=== PATIENT | male | born 1995 | race African-American/Black ===

== ENCOUNTER 2022-08-18 08:52 | Emergency (ER) | payer OTHER ==
--- NOTE | 2022-08-18 09:17 | ED Physician Documentation ---
PD HPI URI - Stated complaint Stated Complaint: COUGH/DIARRHEA - Chief complaint Chief Complaint: General - History obtained from History obtained from: Patient - History of Present Illness Timing - onset: How many weeks ago (07/17) Timing duration: Weeks (07/17) Timing details: Gradual onset, Still present, Waxing and waning (he states illness initially for 4-5 days and was improving some, but then worse cough and now productive with wheezing/dyspnea the past 2-3 days.) Associated symptoms: Nasal congestion, Productive cough, Dyspnea, NVD (initially with some diarrhea, improving.). No: Hemoptysis, Chest pain Contributing factors: Sick contact (he states his children at home had hand/foot/mouth viral URI about 2 weeks ago and then he got sick but no rash/sores of hands/mouth.) Similar symptoms before: Has not had sx before Recently seen: Clinic (went to clinic/walk in a week ago and rx tessalon for cough without improvement in cough.) Review of Systems Constitutional: reports: Myalgias, Fatigue Nose: reports: Congestion Throat: denies: Sore throat Respiratory: reports: Dyspnea (increasing recently), Cough, Wheezing (the past few days) GI: reports: Nausea, Diarrhea. denies: Abdominal Pain, Vomiting Skin: denies: Rash, Lesions Neurologic: reports: Generalized weakness. denies: Altered mental status, Headache PD PAST MEDICAL HISTORY - Past Medical History Cardiovascular: None Respiratory: Asthma (no ongoing asthma, but he states he has had inhalers use in the past with prior URIs. ) Endocrine/Autoimmune: None - Present Medications Home Medications: Ambulatory Orders Medication Instructions Recorded Confirmed Albuterol Sulf [Ventolin Hfa 2 - 3 puffs INH Q4HR PRN #1 each 08/18/22 Inhaler] Doxycycline Hyclate 100 mg PO BID 5 Days #10 cap 08/18/22 dexAMETHasone [Decadron] 4 mg PO DAILY #5 tablet 08/18/22 - Allergies Allergies/Adverse Reactions: Allergies Allergy/AdvReac Type Severity Reaction Status Date / Time No Known Drug Allergies Allergy Verified 08/18/22 09:04 PD ED PE NORMAL - Vitals Vital signs reviewed: Yes - General General: Alert and oriented X 3, No acute distress, Well developed/nourished - HEENT HEENT: Pharynx benign - Neck Neck: Supple, no meningeal sign, No adenopathy - Cardiac Cardiac: RRR, No murmur - Respiratory Respiratory: No respiratory distress. No: Clear bilaterally (exp wheezing noted diffusely without fine crackles nor coarse sounds. ) Results - Vitals Vitals: Vital Signs - 24 hr 08/18/22 08/18/22 08/18/22 08:59 09:18 09:53 Temperature 36.6 C Heart Rate 87 79 72 Respiratory 16 18 16 Rate Blood Pressure 148/98 H 142/93 H O2 Saturation 94 98 08/18/22 11:22 Temperature Heart Rate 82 Respiratory 18 Rate Blood Pressure 132/84 H O2 Saturation 100 Oxygen O2 Source Room air - Labs Labs: Laboratory Tests 08/18/22 09:45 Nasal Adenovirus (PCR) NOT DETECTED Nasal B. parapertussis DNA (PCR) NOT DETECTED Nasal Coronavir 229E PCR NOT DETECTED Nasal Coronavir HKU1 PCR NOT DETECTED Nasal Coronavir NL63 PCR NOT DETECTED Nasal Coronavir OC43 PCR NOT DETECTED Nasal Enterovir/Rhinovir PCR NOT DETECTED Nasal Influenza B PCR NOT DETECTED Nasal Influenza A PCR NOT DETECTED Nasal Parainfluen 1 PCR NOT DETECTED Nasal Parainfluen 2 PCR NOT DETECTED Nasal Parainfluen 3 PCR NOT DETECTED Nasal Parainfluen 4 PCR NOT DETECTED Nasal RSV (PCR) NOT DETECTED Nasal B.pertussis DNA PCR NOT DETECTED Nasal C.pneumoniae (PCR) NOT DETECTED Checo Human Metapneumo PCR NOT DETECTED Nasal M.pneumoniae (PCR) NOT DETECTED Nasal SARS-CoV-2 (PCR) NOT DETECTED - Rads (name of study) chest xray Radiology: Prelim report reviewed (no acute pulmonary process), See rad report PD Medical Decision Making - ED course Complexity details: re-evaluated patient, considered differential (URI symptoms with wheezing, and has had worsening after initial improving. Now productive cough. Consider secondary bacterial bronchitis versus resurgent viral or new viral. Has had reactive airways/asthma with illnesses in the past but not chronic per se. Can treat abx/mdi/steroid. ), d/w patient Departure - Departure Disposition: 01 Home, Self Care Clinical Impression: Wheezing, Lower respiratory infection Condition: Stable Record reviewed to determine appropriate education?: Yes Prescriptions: Albuterol Sulf [Ventolin Hfa Inhaler] 2 - 3 puffs INH Q4HR PRN #1 each PRN Reason: Shortness Of Air/Wheezing dexAMETHasone [Decadron] 4 mg PO DAILY #5 tablet Doxycycline Hyclate 100 mg PO BID 5 Days #10 cap Comments: Your chest x-ray is clear without any signs of pneumonia. Your respiratory viral panel is negative which looks for the more notable infection such as flu, COVID, RSV, parainfluenza and a few others. It does not exclude all viral illnesses. It does sound likely had a viral type respiratory infection. However with the symptoms surging now and increased cough and wheezing, it is possible you have secondary bacterial bronchitis as well. We can treat with an inhaler as well as steroid anti-inflammatory to help with breathing and wheezing. Also doxycycline antibiotic twice daily for 5 days for potential bacterial component now as well. Rest off work today. Recheck if not improving well over the next few days. I sent your prescriptions to [facility] pharmacy. Forms: Activity restrictions Discharge Date/Time: 08/18/22 11:25
[2022-08-18] MEDS ORDERED: CHERRY SYRUP 10 ML UDC PO ONE (09:37)
[2022-08-18] MEDS ORDERED: ALBUTEROL 1 PUFF INH STA (09:37)
[2022-08-18] MEDS ORDERED: DEXAMETHASONE 10 MG/ML VIAL PO STA (09:37)
--- NOTE | 2022-08-18 10:07 | XRAY Report ---
PROCEDURE: Chest 1 View X-Ray INDICATIONS: chest pain TECHNIQUE: One view of the chest was acquired. COMPARISON: None. FINDINGS: Surgical changes and devices: None. Lungs and pleura: No pleural effusions or pneumothorax. Lungs are clear. Mediastinum: Mediastinal contours appear normal. Heart size is normal. Bones and chest wall: No suspicious bony lesions. Overlying soft tissues appear unremarkable. IMPRESSION: No acute pulmonary process. Reviewed by: Cesilia Oropeza MD on 08/18/2022 10:06 AM [facility] Approved by: Cesilia Oropeza MD on 08/18/2022 10:06 AM [facility] Station ID: [id number]
[2022-08-18 10:50] LABS: B. PARAPERTUSSIS- RESP PCR PAN NOT DETECTED; B. PERTUSSIS- RESP PCR PANEL NOT DETECTED; C. PNEUMONIAE- RESP PCR PANEL NOT DETECTED; CORONAVIRUS 229E-RESP PCR NOT DETECTED; CORONAVIRUS HKU1-RESP PCR NOT DETECTED; CORONAVIRUS NL63-RESP PCR NOT DETECTED; CORONAVIRUS OC43-RESP PCR NOT DETECTED; HUMAN METAPNEUMOVIRUS NOT DETECTED; INFLUENZA A- RESP PCR PANEL NOT DETECTED; INFLUENZA B - RESP PCR PANEL NOT DETECTED; M. PNEUMONIAE- RESP PCR PANEL NOT DETECTED; PARAINFLUENZA VIRUS 1 NOT DETECTED; PARAINFLUENZA VIRUS 2 NOT DETECTED; PARAINFLUENZA VIRUS 3 NOT DETECTED; PARAINFLUENZA VIRUS 4 NOT DETECTED; RHINOVIRUS/ENTEROVIRUS NOT DETECTED; RSV- RESP PCR PANEL NOT DETECTED; SARS-CoV-2 -RESP PCR PANEL NOT DETECTED
[2022-08-18 11:24] VITALS: BP 132/84
== END 2022-08-18 11:25 | disposition home or self-care (01) ==
LOC: ED 08:52
DX: J22 Unspecified acute lower respiratory infection (principal); Z20.822 Contact with and (suspected) exposure to COVID-19
CPT/HCPCS: 71045; 87633; 94640; 94664; 99284; A9270

== ENCOUNTER 2022-12-06 12:00 | Outpatient (CLI) | payer OTHER ==
--- NOTE | 2022-12-06 14:26 | XRAY Report ---
PROCEDURE: Ankle 3 View RT INDICATIONS: PAIN ON RIGHT ANKLE TECHNIQUE: 3 views of the ankle were acquired. COMPARISON: None. FINDINGS: Bones: A tiny bony fragment dorsal to the anterior dorsal surface of the talus may potentially repre sent a tiny avulsion. No other fractures or dislocations. Ankle mortise is normally aligned. No susp icious bony lesions. Soft tissues: No tibiotalar joint effusion. Achilles tendon appears minimally thickened. IMPRESSION: 1. Question avulsion off of the anterior dorsal surface of the talus. 2. Minimally thickened Achilles tendon with a suggest a partial tear. Comment: Consider correlation with clinical exam for presence or absence of pain. Additional comment: Ankle MRI may be helpful. It would identify a potential acute process involving t he talus, as well as evaluating the Achilles tendon. Reviewed by: Paco Andino MD on 12/06/2022 2:25 PM PDT Approved by: Paco Andino MD on 12/06/2022 2:25 PM PDT Station ID: [id number]
== END 2022-12-06 12:15 | disposition home or self-care (01) ==
LOC: DI.N 12:00
PROVIDERS: ATTEND Physician Assistant
DX: M25.571 Pain in right ankle and joints of right foot (principal)

== ENCOUNTER 2022-12-26 13:56 | Outpatient (CLI) | payer OTHER ==
--- NOTE | 2022-12-27 07:48 | MRI Report ---
PROCEDURE: ANKLE WO - RT INDICATIONS: INJURY TO RIGHT ANKLE TECHNIQUE: Noncontrast Magnetic Resonance Imaging (MRI) of the ankle/hindfoot was performed utilizing the follow ing sequences: sagittal T1 spin echo, sagittal T2 fast spin echo with fat saturation, axial PD fast s pin echo, axial T2 fast spin echo with fat saturation, coronal T1 spin echo, and coronal T2 fast spin echo with fat saturation. COMPARISON: Right ankle radiographs 12/06/2022 FINDINGS: Image quality: Excellent. Bones and joints: No acute trabecular bone injury or focal osseous edema. The previously seen tiny ossification dorsal to the talar head is not well-visualized on MRI. Partial-thickness cartilage irregularity is seen ove rlying the medial talar dome without associated osseous signal abnormality or irregularity of the sub chondral plate. Mild osteophyte formation at the anteromedial talar head could contribute to anterior osseous impingement. A moderate joint effusion is present. No hindfoot coalition. Medial structures: The deltoid ligament and the spring ligament are intact. There is mild distal posterior tibialis teno synovitis. The flexor digitorum longus and flexor hallucis longus tendons are intact. The posterior t ibial neurovascular bundle appears normal within the tarsal tunnel, without extrinsic mass effect. Lateral structures: The anterior and posterior distal tibiofibular ligaments are intact. Remote prior moderate grade spra ins of the anterior talofibular ligament and calcaneofibular ligament, with attenuation of the ligame nts. The posterior talofibular ligament is intact. The peroneus brevis and longus tendons demonstrate mild to moderate tendinosis and tenosynovitis. The sinus tarsi demonstrates normal fatty signal. Anterior structures: The tibialis anterior, extensor hallucis longus, and extensor digitorum longus tendons appear intact. Suspected remote prior low-grade sprain of the dorsal talonavicular ligament. Posterior and plantar structures: Moderate Achilles tendinosis. The proximal plantar fascia is intact. No disproportionate atrophy of t he abductor digiti minimi muscle. IMPRESSION: 1.Remote prior moderate grade sprains of the anterior talofibular ligament and calcaneofibular ligame nt. 2.Mild/moderate peroneus brevis and longus tendinosis and tenosynovitis. 3.Mild distal posterior tibialis tenosynovitis. 4.Partial-thickness cartilage irregularity at the medial talar dome without definite osteochondral le glenn. Small marginal osteophytes are present that could contribute to anterior osseous impingement. 5.Suspected prior low-grade sprain of the dorsal talonavicular ligament. Small ossification seen from prior radiographs is not well visualized on MRI. 6.Moderate Achilles tendinosis. Reviewed by: Marco Rondon MD on 12/27/2022 7:47 AM PDT Approved by: Marco Rondon MD on 12/27/2022 7:47 AM PDT Station ID: [id number]
== END 2022-12-26 13:57 | disposition home or self-care (01) ==
LOC: DI 13:56
DX: S99.911A Unspecified injury of right ankle, initial encounter (principal); S93.491D Sprain of other ligament of right ankle, subsequent encounter; S93.411D Sprain of calcaneofibular ligament of right ankle, subsequent encounter; M65.9 Synovitis and tenosynovitis, unspecified; M67.873 Other specified disorders of tendon, right ankle and foot; M25.771 Osteophyte, right ankle